=== PATIENT | male | born 1985 | race American Indian/Alaskan Native ===

== ENCOUNTER 2021-05-09 00:54 | Emergency (ER) | payer SELFPAY ==
[2021-05-09] MEDS ORDERED: oxyCODONE /ACETAMINOPHEN 5-325MG TAB PO ONE (01:35)
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
== END 2021-05-09 02:55 | disposition home or self-care (01) ==
LOC: ED 00:54
DX: S62.631A Displaced fracture of distal phalanx of left index finger, initial encounter for closed fracture (principal); F17.200 Nicotine dependence, unspecified, uncomplicated; W22.8XXA Striking against or struck by other objects, initial encounter; Y93.89 Activity, other specified; Y92.89 Other specified places as the place of occurrence of the external cause; Y99.8 Other external cause status
CPT/HCPCS: 99283